=== PATIENT | male | born 1980 | race Native Hawaiian/Other Pacific Islander ===

== ENCOUNTER 2020-11-11 18:28 | Emergency (ER) | payer MEDICARE ==
[~2020-11-11] VITALS: Ht 180.3 cm; Wt 90.9 kg
[2020-11-11 19:04] LABS: CLARITY,URINE CLEAR (Clear); COLOR,URINE AMBER (Yellow); GLUCOSE, URINE NEGATIVE (Neg); KETONES,URINE NEGATIVE (Neg); LEUKOCYTE ESTERASE ,URINE NEGATIVE (Neg); NITRITES, URINE NEGATIVE (Neg); OCCULT BLOOD,URINE NEGATIVE (Neg); PH,URINE 5.5 (4.8-8.0); PROTEIN,URINE NEGATIVE (Neg)
[2020-11-11 19:05] LABS: UA COLLECTION TYPE CLN CATCH MIDSTREAM
--- NOTE | 2020-11-11 19:15 | NUR ---
REPORT TO PRIMARY RN GILBERTO
--- NOTE | 2020-11-11 19:30 | NUR ---
DR SHER REVIWED STRIP WITH SB WITH "T"WAVE INVERSION
--- NOTE | 2020-11-11 19:30 | NUR ---
PATIENT STATES THAT HE JUST GOT HERE FROM [facility]. HE STATES TAHT HE IS WALKING AROUND TO FIND AN [employer]. HE APPEARS TO HAVE GOTTEN A LOT OF SUN RECENTLY. PATIENT DENIES ANY MEDICAL HISTORY AND STATES ADAMANTLY WITHOUT BEING ASKED :"I DONT DO DRUGS" HE DOES NOT ANSWER WHEN I ASKED HIM IF HE IS HOMELESS.
[2020-11-11 19:57] LABS: BASOPHILS % (AUTO) 0.3 % (0-1); EOSINOPHILS # (AUTO) 0.1 X10'3 (0-0.9); EOSINOPHILS % (AUTO) 2.9 % (0-6); HEMATOCRIT 37.5 % (42.0-52.0); HEMOGLOBIN 12.2 g/dl (14.0-17.9); LYMPHOCYTES # (AUTO) 1.5 X10'3 (1.1-4.8); LYMPHOCYTES % (AUTO) 30.8 % (21-51); MEAN CORPUSCULAR HEMOGLOBIN 27.4 PG (27.0-31.0); MEAN CORPUSCULAR HGB CONC 32.5 g/dL (33.0-36.5); MEAN CORPUSCULAR VOLUME 84.2 FL (78-98); MONOCYTES # (AUTO) 0.4 X10'3 (0-0.9); MONOCYTES % (AUTO) 7.5 % (2-12); NEUTROPHILS # (AUTO) 2.9 X10'3 (1.8-7.7); NEUTROPHILS % (AUTO) 58.5 % (42-75); PLATELET COUNT 314 X10'3 (140-440); RED BLOOD COUNT 4.46 X10'6 (4.70-6.10); RED CELL DISTRIBUTION WIDTH 13.3 % (11.5-14.5); WHITE BLOOD COUNT 4.9 X10'3 (4.5-11.0)
[2020-11-11 19:58] LABS: ALANINE AMINOTRANSFERASE 50 U/L (12-78); ALBUMIN 3.8 G/DL (3.4-5.0); ALBUMIN/GLOBULIN RATIO 1.1 (1.1-1.5); ALKALINE PHOSPHATASE 67 IU/L (46-116); ANION GAP 11 (8-16); ASPARTATE AMINO TRANSFERASE 39 U/L (10-37); BILIRUBIN,TOTAL 0.6 MG/DL (0.1-1.0); BLOOD UREA NITROGEN 16 MG/DL (7-18); BUN/CREATININE RATIO 18.4 (5.4-32.0); CALCIUM 8.7 MG/DL (8.5-10.1); CHLORIDE 104 MMOL/L (99-107); CREATININE 0.87 MG/DL (0.60-1.10); GLUCOSE 100 MG/DL (70-104); POTASSIUM 3.4 MMOL/L (3.5-5.1); SODIUM 141 MMOL/L (135-145); TOTAL CARBON DIOXIDE 25.8 MMOL/L (24-32); TOTAL PROTEIN 7.3 G/DL (6.4-8.2); eGFR > 90 ML/MIN
[2020-11-11] MEDS ORDERED: normal saline 1000ML IV soln IVB ONE (20:00)
[2020-11-11 20:05] LABS: LIPASE 104 U/L (73-393); TROPONIN I < 0.04 NG/ML (0.0-0.05)
[2020-11-11 22:01] LABS: URINE AMPHETAMINE SCREEN NEGATIVE (Neg); URINE BARBITUATE SCREEN NEGATIVE (Neg); URINE BENZODIAZEPINES SCREEN NEGATIVE (Neg); URINE CANNABINOID SCREEN NEGATIVE (Neg); URINE COCAINE SCREEN NEGATIVE (Neg); URINE METHADONE SCREEN NEGATIVE (Neg); URINE OPIATE SCREEN NEGATIVE (Neg); URINE PHENCYCLIDINE SCREEN NEGATIVE (Neg)
[2020-11-11] MEDS ORDERED: naloxone 0.4 mg/ml inj IV ONE (22:10)
[2020-11-11 23:51] VITALS: BP 116/66
== END 2020-11-11 23:54 | disposition home or self-care (01) ==
LOC: ER 19:49
DX: R10.33 Periumbilical pain (principal)
CPT/HCPCS: 36415; 80053; 80305; 81003; 83690; 84484; 85025; 93005; 96361; 96374; 99285; J2310; J7030